=== PATIENT | female | born 1945 | race Caucasian/White ===

== ENCOUNTER → 2016-10-26 18:29 | Outpatient (CLI) | payer MEDICARE, OTHER ==
[2012-12-08 06:35] VITALS: BMI 36.4
[~2016-10-26 18:29] MED LIST: ALEVE220 MG PO; NORCO 10/325 TA1 TA1 PO; ORTHO-EST0.75 MG PO; PRILOSEC20 MG PO; ZOLOFT100 MG PO
== END | disposition home or self-care (01) ==
LOC: D.MAMMO 13:15
DX: Z12.31 Encounter for screening mammogram for malignant neoplasm of breast (principal)

== ENCOUNTER → 2017-08-04 10:57 | Outpatient (CLI) | payer MEDICARE, OTHER ==
[2012-12-08 06:35] VITALS: BMI 36.4
== END | disposition home or self-care (01) ==
LOC: D.CT 10:57
DX: M54.42 Lumbago with sciatica, left side (principal)